=== PATIENT | female | born 1985 | race Two or more races ===

== ENCOUNTER 2024-11-30 18:18 | Emergency (ER) | payer MEDICAID, SELFPAY ==
[2024-11-30 18:28] VITALS: BP 112/69; PULSE 65; RESP 18; TEMP 37.1; O2SAT 99; BMI 23.7
--- NOTE | 2024-11-30 18:36 | EDNOTE_ITS ---
ED General RME/HPI General Chief complaint: Shortness of Breath/Dyspnea Stated complaint: COUGH, SOB, WANTS 02 Time Seen by Provider: 11/30/24 18:25 Arrival date/time: 11/30/24 18:18 Related Data Previous Rx's ?Medication ?Instructions ?Recorded amoxicillin 875 mg-potassium 1 tab PO BID 5 days #10 t abs 11/30/24 clavulanate 125 mg tablet Allergies Allergy/AdvReac Type Severity Reaction Status Date / Time aspirin Allergy Rash Verified 11/30/24 18:22 Review of Systems Review of Systems Systems Reviewed: All systems reviewed, normal except as documented Course Quality Measures none Orders Category Date Time Status Bedside COVID-19 Antigen Test NOW Care 11/30/24 18:35 Completed Bedside Influenza A&B Antigen Test NOW Care 11/30/24 18:35 Completed Albuterol/Ipratr Rt Chantelle [Duoneb Rt Chantelle] Med 11/30/24 18:35 Discontinued 3 ml INH X1 ONE Vital Signs Vital signs: Vital Signs Temperature 98.7 F 11/30/24 18:28 Pulse Rate 65 11/30/24 18:28 Respiratory Rate 18 11/30/24 18:28 Blood Pressure 112/69 11/30/24 18:28 Pulse Oximetry (%) 99 11/30/24 18:28 Oxygen Delivery Method Room Air 11/30/24 18:28 Discharge Plan Plan Patient Disposition: HOME (Self Care) Prescriptions/Referrals Prescriptions/Med Rec: New amoxicillin-pot clavulanate 875-125 mg tablet 1 tab PO BID 5 Days Qty: 10 0RF Referrals: No Primary/Family,Physician [Primary Care Provider] - In 1 week Problem List Clinical Impression: Community acquired pneumonia Patient/Caregiver Discharge Instructions Additional Instructions: 1 Follow up with primary care physician within 1 week of discharge 2 You have been prescribed an antibiotic Augmentin for 5 days please take these medications as prescribed 3 Should any symptoms recur or worsen patient is instructed to return to the ED. Print Language: Kyrgyz Stand Alone Forms: May Award Info., Patient Portal Info Letter MDM Narrative MDM hospital course: 39 y/o F with no PMHX who presented to the ED due to cough. Patient states shes been having cough for a about a week and is now developing some SOB as well. She states she was in [place] recently for work purposes, but is unsure if she was near anyone that was sick. She attributes her symptoms due to the sudden change in temperature. 1842: duo nebs ordered, swabs ordered 2000 swabs negative, duonebs improved patients symptoms Patient can be safely discharged with PO antibiotics for pneumonia and with strict return precautions. Clinical Information Provided by patient Medical Records Reviewed [facility] Chronic Illness/Social Conditions which may negatively complicate care or outcome(s)-explain: None or not applicable Lab Interpretation Labs: none Medication Administration(s) Medication Administration History Discontinued Medications Albuterol/Ipratropium (Albuterol/Ipratropium (Duoneb) Rt Chantelle 3 Ml Nebu) 3 ml INH X1 ONE Stop: 11/30/24 18:36 Last Admin: 11/30/24 18:56 Dose: 3 ml Documented By: SUMMER
[2024-11-30 18:56] VITALS: PULSE 55; RESP 17; O2SAT 100
[2024-11-30] MEDS: ALBUTEROL/IPRATROPIUM (Duoneb) RT SOL 3 ML NEBU INH (18:56)
[2024-11-30 19:57] VITALS: BP 125/82; PULSE 58; RESP 18; TEMP 36.9; O2SAT 100
== END 2024-11-30 20:18 | disposition home or self-care (01) ==
PROVIDERS: Emergency Provider Student in an Organized Health Care Education/Training Program
DX: J18.9 Pneumonia, unspecified organism (principal)
CPT/HCPCS: 87400; 87811; 94640; 99283; A9270